=== PATIENT | female | born 1955 | race Two or more races ===

== ENCOUNTER 2017-04-20 11:24 | Inpatient (IN) | payer OTHER, MEDICAID ==
[~2017-04-20] VITALS: Ht 157.5 cm; Wt 95.1 kg
[~2017-04-20 11:24] MED LIST: BENA40TA7 PO; BUDE160A3 INH; DIGO0.1262 PO; ESTR0.3T PO; METH500T2 PO; METO-159 PO
[2017-04-20 12:24] LABS: Basophils # (auto) 0 uL; Basophils % (auto) 0.3 % (0.0-2.0); Eosinophils # (auto) 0.1 uL; Eosinophils % (auto) 2.2 % (0.0-7.0); Hematocrit 34.9 % (36.0-46.0); Hemoglobin 11.6 g/dL (12.2-16.2); Lymphocytes # (auto) 1.8 uL; Lymphocytes % (auto) 28.6 % (10.0-50.0); Mean Corpuscular Hemoglobin 29.8 pg (28.0-32.0); Mean Corpuscular Hgb Conc. 33.2 g/dL (32.0-36.0); Mean Corpuscular Volume 89.6 fL (80.0-100.0); Mean Platelet Volume 7.8 fL (7.4-10.4); Monocytes # (auto) 0.6 uL; Monocytes % (auto) 8.7 % (0.0-12.0); Neutrophils # (auto) 3.8 uL; Neutrophils % (auto) 60.2 % (37.0-80.0); Platelet Count (auto) 257 10^3/uL (140-450); Red Cell Distribution Width 13.7 % (11.6-16.0); White Blood Cell 6.4 10^3/uL (4.4-10.8)
[2017-04-20 12:45] LABS: Albumin 3.1 g/dL (3.4-5.0); Calcium 7.8 mg/dL (8.5-10.1); Potassium 3.5 mmol/L (3.5-5.1)
[2017-04-20 12:48] LABS: Bilirubin, Total 0.3 mg/dL (0.2-1.0); Total Protein 6.6 g/dL (6.4-8.2)
[2017-04-20 13:16] LABS: Urine Bilirubin Negative (Negative); Urine Blood Negative /uL (Negative); Urine Color Yellow (Yellow); Urine Glucose Normal (Normal); Urine Ketone Negative (Negative); Urine Mucus FEW (None Seen); Urine Nitrite Negative (Negative); Urine RBC <1 /hpf (0 - 4); Urine Squamous Epithelial Cell FEW /hpf (<5); Urine Urobilinogen Normal (Negative); Urine pH 6.5 (5.0-8.0)
[2017-04-20] MEDS ORDERED: SODIUM CHLORIDE 0.9% 1,000 ML IVB ONE (16:42)
[2017-04-20] MEDS ORDERED: ONDANSETRON HCL 4 MG/2 ML VIAL IV ONE (16:45)
[2017-04-20] MEDS ORDERED: MORPHINE SULF INJ 2 MG/ML SYRINGE 1ML IV ONE (17:15)
[2017-04-20] MEDS: SODIUM CHLORIDE 0.9% 1,000 ML IV SCH (19:13)
[2017-04-20] MEDS ORDERED: DEXTROSE (50%) 50ML SYRG IV PRN (19:15)
[2017-04-20] MEDS ORDERED: TEMAZEPAM 15 MG CAP PO PRN (19:15)
[2017-04-20] MEDS ORDERED: LABETALOL HCL 5 MG/ML 4ML SYRINGE IV PRN ×3 (19:15)
[2017-04-20] MEDS ORDERED: NITROGLYCERIN 0.4 MG SL TAB SL PRN (19:15)
[2017-04-20] MEDS ORDERED: MORPHINE SULF INJ 2 MG/ML SYRINGE 1ML IV PRN (19:15)
[2017-04-20] MEDS ORDERED: cefTRIAXone 1GM/50ML D5W 50 ML IV ONE ×2 (19:15)
[2017-04-20] MEDS ORDERED: PROMETHAZINE HCL 25 MG/ML 1ML IV PRN (19:15)
[2017-04-20] MEDS ORDERED: LORazepam 0.5 MG TAB PO PRN (19:15)
[2017-04-20 19:52] LABS: INR 1.02 (0.9-1.15); Prothrombin Time 11.1 sec (9.37-12.3)
[2017-04-20] MEDS: ENALAPRILAT 1.25 MG/ML-1ML VIAL IV PRN (20:24)
[2017-04-20 21:00] VITALS: BP 163/97
[2017-04-20] MEDS: MORPHINE SULFATE 4 MG/ML SYRG IV PRN (21:51)
[2017-04-20] MEDS ORDERED: METHYLDOPA 500 MG PO SCH (22:00)
[2017-04-21] VITALS (7 sets, daily range): BP systolic 145–181; BP diastolic 84–102
[2017-04-21] MEDS: ACCU-CHEK COMFORT CURVE STRIP VI SCH ×5 (00:20→23:33)
[2017-04-21] MEDS: metroNIDAZOLE 500MG/100ML 100 ML IV SCH ×4 (01:44→19:48)
[2017-04-21] MEDS: MORPHINE SULFATE 4 MG/ML SYRG IV PRN (04:04)
[2017-04-21] MEDS: SODIUM CHLORIDE 0.9% 1,000 ML IV SCH ×2 (05:13→15:13)
[2017-04-21] MEDS: InsuLIN REG 1unit/0.01ml Soln (100units/ml) SC SCH ×5 (06:00→23:33)
[2017-04-21] MEDS: ALBUTEROL SULF 2.5 MG/0.5ML(0.5%) NEB SOLN NEB SCH ×3 (06:00→19:28)
[2017-04-21 06:32] LABS: Basophils # (auto) 0 uL; Basophils % (auto) 0.6 % (0.0-2.0); Eosinophils # (auto) 0.1 uL; Eosinophils % (auto) 1.6 % (0.0-7.0); Hemoglobin 11.5 g/dL (12.2-16.2); Lymphocytes # (auto) 2.4 uL; Lymphocytes % (auto) 41.8 % (10.0-50.0); Mean Corpuscular Hemoglobin 29.7 pg (28.0-32.0); Mean Corpuscular Volume 89.9 fL (80.0-100.0); Mean Platelet Volume 8.4 fL (7.4-10.4); Monocytes # (auto) 0.6 uL; Monocytes % (auto) 10.8 % (0.0-12.0); Neutrophils # (auto) 2.6 uL; Neutrophils % (auto) 45.2 % (37.0-80.0); Platelet Count (auto) 237 10^3/uL (140-450); Red Cell Distribution Width 13.5 % (11.6-16.0); White Blood Cell 5.7 10^3/uL (4.4-10.8)
[2017-04-21 06:55] LABS: Albumin 3.3 g/dL (3.4-5.0); BUN/Creatinine Ratio 11.8; Bilirubin, Total 0.3 mg/dL (0.2-1.0); Calcium 8.2 mg/dL (8.5-10.1); Potassium 3.3 mmol/L (3.5-5.1); Total Protein 6.4 g/dL (6.4-8.2)
[2017-04-21] MEDS: cefTRIAXone 1GM/50ML D5W 50 ML IV SCH (09:01)
[2017-04-21] MEDS ORDERED: GASTROGRAFIN 30 ML SOL ONE (09:11)
[2017-04-21] MEDS ORDERED: IOHEXOL 300 MG/ML 100ML BOTTLE IJ ONE (09:12)
[2017-04-21] MEDS ORDERED: PATIENTS OWN MEDICATION (Metoprolol Tartrate 100 MG) PO SCH ×2 (10:00)
[2017-04-21] MEDS: METOPROLOL TARTRATE 50 MG TAB PO SCH ×2 (10:00→21:32)
[2017-04-21] MEDS: DIGOXIN 0.125 MG TAB PO SCH (10:00)
[2017-04-21] MEDS: METHYLDOPA 250 MG TAB PO SCH ×2 (10:00→21:33)
[2017-04-21] MEDS ORDERED: PATIENTS OWN MEDICATION (Benazepril Hcl 40 MG) PO SCH ×2 (10:00)
[2017-04-21] MEDS: BENAZEPRIL HCL 10 MG TAB PO SCH (10:00)
[2017-04-21] MEDS: BUDESONIDE (INHALATION) 0.5 MG/2 ML NEB NEB SCH ×2 (10:00→19:28)
[2017-04-21] MEDS ORDERED: PANTOPRAZOLE SODIUM 40 MG/10 ML VIAL IV SCH (10:00)
[2017-04-21] MEDS ORDERED: PATIENTS OWN MEDICATION (Budesonide-Formoterol Fumarate (Symbicort) 2 PUFF) INH SCH (10:00)
[2017-04-21] MEDS: MORPHINE SULF INJ 2 MG/ML SYRINGE 1ML IV PRN ×2 (11:08→19:50)
[2017-04-21] MEDS: BUDESONIDE FORMOTEROL FUMARATE INH SCH ×2 (11:08)
[2017-04-21] MEDS ORDERED: POTASSIUM CHL 10% (20 MEQ/15ML) ORAL SOLN PO ONE (18:30)
[2017-04-21] MEDS: ENALAPRILAT 1.25 MG/ML-1ML VIAL IV PRN (23:27)
[2017-04-22] MEDS: MORPHINE SULF INJ 2 MG/ML SYRINGE 1ML IV PRN ×2 (00:33→08:52)
[2017-04-22] MEDS: ALBUTEROL SULF 2.5 MG/0.5ML(0.5%) NEB SOLN NEB SCH ×4 (00:53→19:07)
[2017-04-22] MEDS: metroNIDAZOLE 500MG/100ML 100 ML IV SCH ×3 (01:58→14:52)
[2017-04-22] MEDS: SODIUM CHLORIDE 0.9% 1,000 ML IV SCH ×2 (01:58→11:13)
[2017-04-22 04:42] VITALS: BP 142/79
[2017-04-22] MEDS: InsuLIN REG 1unit/0.01ml Soln (100units/ml) SC SCH ×3 (06:00→18:00)
[2017-04-22] MEDS: ACCU-CHEK COMFORT CURVE STRIP VI SCH ×3 (06:11→18:00)
[2017-04-22 06:31] LABS: Basophils # (auto) 0 uL; Basophils % (auto) 0.6 % (0.0-2.0); Eosinophils # (auto) 0 uL; Eosinophils % (auto) 0.5 % (0.0-7.0); Hematocrit 36.2 % (36.0-46.0); Hemoglobin 12.1 g/dL (12.2-16.2); Lymphocytes # (auto) 2.2 uL; Lymphocytes % (auto) 29.5 % (10.0-50.0); Mean Corpuscular Hemoglobin 29.7 pg (28.0-32.0); Mean Corpuscular Hgb Conc. 33.4 g/dL (32.0-36.0); Mean Corpuscular Volume 88.7 fL (80.0-100.0); Mean Platelet Volume 8.1 fL (7.4-10.4); Monocytes # (auto) 0.7 uL; Monocytes % (auto) 9.6 % (0.0-12.0); Neutrophils # (auto) 4.5 uL; Neutrophils % (auto) 59.8 % (37.0-80.0); Platelet Count (auto) 273 10^3/uL (140-450); Red Cell Distribution Width 13.6 % (11.6-16.0); White Blood Cell 7.5 10^3/uL (4.4-10.8)
[2017-04-22 06:42] LABS: INR 1.05 (0.9-1.15); Partial Thromboplastin Time 26.6 sec (22.64-33.71); Prothrombin Time 11.4 sec (9.37-12.3)
[2017-04-22 07:44] LABS: Calcium 8.4 mg/dL (8.5-10.1); Magnesium 2.2 mg/dL (1.6-2.6); Potassium 3.4 mmol/L (3.5-5.1)
[2017-04-22 08:01] VITALS: BP 184/94
[2017-04-22] MEDS: ENALAPRILAT 1.25 MG/ML-1ML VIAL IV PRN ×2 (08:39→15:39)
[2017-04-22] MEDS: cefTRIAXone 1GM/50ML D5W 50 ML IV SCH (09:00)
[2017-04-22] MEDS: BUDESONIDE FORMOTEROL FUMARATE INH SCH ×2 (10:00)
[2017-04-22] MEDS: METHYLDOPA 250 MG TAB PO SCH (10:00)
[2017-04-22 10:04] VITALS: BP 175/85
[2017-04-22] MEDS: BUDESONIDE (INHALATION) 0.5 MG/2 ML NEB NEB SCH ×2 (10:20→19:07)
[2017-04-22] MEDS ORDERED: SODIUM CHLORIDE LOCK 10 ML ONE (10:44)
[2017-04-22] MEDS ORDERED: LIDOCAINE VISCOUS 2% 15ML UD ONE (10:44)
[2017-04-22] MEDS ORDERED: diphenhdrAMINE HCL 50 MG/1 ML VL ONE (10:45)
[2017-04-22] MEDS: MIDAZOLAM HCL 5 MG/ML-1ML VIAL ONE ×2 (12:53→12:56)
[2017-04-22] MEDS: fentaNYL CITRATE 100 MCG/2 ML VL ONE ×2 (12:53→12:56)
[2017-04-22] MEDS ORDERED: METR500T PO (14:30)
[2017-04-22] MEDS ORDERED: PANT40T PO (14:30)
[2017-04-22] MEDS ORDERED: HYDR-4663 PO (14:30)
[2017-04-22] MEDS ORDERED: LEVO500T21 PO (14:30)
[2017-04-22 15:07] VITALS: BP 148/98
[2017-04-22] MEDS: BENAZEPRIL HCL 10 MG TAB PO SCH (15:40)
[2017-04-22] MEDS: METOPROLOL TARTRATE 50 MG TAB PO SCH (15:40)
[2017-04-22] MEDS: DIGOXIN 0.125 MG TAB PO SCH (15:40)
[2017-04-22 16:44] VITALS: BP 170/104
[2017-04-22 18:55] VITALS: BP 145/64
[2017-04-22] MEDS ORDERED: PANTOPRAZOLE 40 MG TAB PO SCH (22:00)
== END 2017-04-22 19:45 | disposition home health service (06) | DRG 392 ==
LOC: ER 11:26 → TELE 11:27 → TELE-WESTW 20:09 → WEST WING 04-21 16:50
PROVIDERS: ADMIT Internal Medicine; ATTEND Internal Medicine
PROC: 0DB68ZX Excision of Stomach, Via Natural or Artificial Opening Endoscopic, Diagnostic (ICD-10-PCS; principal; 2017-04-22 12:50)
DX: K20.9 Esophagitis, unspecified (principal); K52.9 Noninfective gastroenteritis and colitis, unspecified; J45.909 Unspecified asthma, uncomplicated; E78.5 Hyperlipidemia, unspecified; M81.0 Age-related osteoporosis without current pathological fracture; D64.9 Anemia, unspecified; E11.9 Type 2 diabetes mellitus without complications; I11.9 Hypertensive heart disease without heart failure; I48.0 Paroxysmal atrial fibrillation; E66.9 Obesity, unspecified; F41.9 Anxiety disorder, unspecified; G47.00 Insomnia, unspecified; M54.9 Dorsalgia, unspecified; M19.90 Unspecified osteoarthritis, unspecified site; Z87.442 Personal history of urinary calculi; Z82.49 Family history of ischemic heart disease and other diseases of the circulatory system; Z83.3 Family history of diabetes mellitus; Z68.38 Body mass index [BMI] 38.0-38.9, adult; Z79.899 Other long term (current) drug therapy; Z90.710 Acquired absence of both cervix and uterus
CPT/HCPCS: 36415; 71010; 74176; 74177; 76705; 78226; 80048; 80053; 81001; 82150; 82962; 83036; 83690; 83735; 85025; 85048; 85610; 85652; 85730; 86141; 86850; 86900; 86901; 87045; 87086; 87493; 87899; 93005; 94640; 96361; 96365; 96375; C9113; J0696; J2250; J2405; J3490